=== PATIENT | female | born 1935 | race Caucasian/White ===

== ENCOUNTER → 2018-01-19 | Outpatient (CLI) | payer MEDICARE, BC ==
--- NOTE | 2018-01-20 09:31 | RADIOLOGY REPORT (SQ) ---
EXAM DESCRIPTION: CT CHEST WITH COMPLETED DATE/TIME: 01/19/2018 1:45 pm REASON FOR STUDY: LUNG NODULES (R91.8) R91.8 OTHER NONSPECIFIC ABNORMAL FINDING OF LUNG FIELD COMPARISON: Outside report 12/30/2017 CT coronary scoring, [facility] Diagnostic Imaging TECHNIQUE: CT scan of the chest performed using helical scanning technique with dynamic intravenous contrast injection. Images reviewed with lung, soft tissue and bone windows. Reconstructed coronal and sagittal MPR images reviewed. All images stored on PACS. All CT scanners at this facility use dose modulation, iterative reconstruction, and/or weight based d osing when appropriate to reduce radiation dose to as low as reasonably achievable (ALARA). [facility]: Dose Right [facility]: CareDose [facility]: Dose Right [facility]: Teradose 4D [facility]: [employer] CONTRAST TYPE AND DOSE: contrast/concentration: Isovue 370.00 mg/ml; Total Contrast Delivered: 80.0 ml; Total Saline Delivered: 55.0 ml RENAL FUNCTION: Creatinine 0.8 RADIATION DOSE: CT Rad equipment meets quality standard of care and radiation dose reduction techniq ues were employed. CTDIvol: 3.7 mGy. DLP: 142 mGy-cm. . LIMITATIONS: None. FINDINGS: LUNGS AND PLEURA: There is minimal patchy ground-glass opacity throughout both lungs. Bronchiectasis is present in the medial segment right middle lobe and lingular apex. There are too numerous to count pulmonary nodules scattered throughout the lung parenchyma, less than 1 cm in size. No pleural effusions. No pneumothorax. HILAR AND MEDIASTINAL STRUCTURES: No identified masses or abnormal nodes. HEART AND VASCULAR STRUCTURES: Left ventricular hypertrophy without overall cardiomegaly. No pericar dial effusion. Spotty minimal coronary artery calcifications. Ascending aorta 3.8 cm in greatest di ameter without dissection. HARDWARE: None in the chest. UPPER ABDOMEN: No significant findings. Limited exam. THYROID AND OTHER SOFT TISSUES: No masses. No adenopathy. BONES: Osteopenic. No thoracic compression deformity OTHER: No other significant finding. IMPRESSION: Postinflammatory changes in the lungs with evidence of current alveolitis. Multiple nod ules are present with bronchiectasis. Findings could reflect sarcoidosis. Mycobacterium complex cou ld cause this appearance. Chronic hypersensitivity pneumonitis is possible. TECHNICAL DOCUMENTATION: JOB ID: [id number] Quality ID # [id number]: Final reports with documentation of one or more dose reduction techniques (e.g., Au tomated exposure control, adjustment of the mA and/or kV according to patient size, use of iterative reconstruction technique) 2010 [employer]- All Rights Reserved Reading location - IP/workstation name: [email or web address]
== END ==
LOC: RAD 12:59
PROVIDERS: ATTEND Internal Medicine Geriatric Medicine
DX: R91.8 Other nonspecific abnormal finding of lung field (principal)
CPT/HCPCS: 71260; 82565

== ENCOUNTER → 2018-02-11 | Outpatient (CLI) | payer MEDICARE, BC ==
[~2018-02-11] MED LIST: REGADENOSON INJ 0.4 MG/5 ML DISP.SYRIN IV ONE
--- NOTE | 2018-02-11 20:32 | DRAGON STRESS TEST REPORT ---
INTRAVENOUS LEXISCAN CARDIOLITE STRESS TEST USING SINGLE PHOTON EMMISION COMPUTERIZED TOMOGRAPHIC. DATE OF PROCEDURE: January, INDICATION : Chest pain and shortness of breath CARDIAC RISK FACTORS: Hypertension dyslipidemia RESTING EKG: Sinus rhythm without any baseline ST-T wave changes. STRESS EKG: No significant ST segment changes noted with LexiScan bolus REASON FOR TERMINATION: Protocol. PROCEDURE REPORT: Baseline heart rate 81 beats per minute with blood pressure of 120/63. Patient had no significant complaints. Patient was bolused with Lexiscan 0.4 mg intravenously followed by saline bolus. Heart rate at 2 minutes post bolus 93 with a blood pressure of 127/70. 3 minutes post bolus heart rate 94 with blood pressure of 114/58. No significant EKG changes were noted. Patient had no significant complaints during the procedure or postprocedure. CONCLUSIONS: Normal EKG and hemodynamic response to IV LexiScan. NUCLEAR DATA: At rest the patient was given 10.80 millicuries of technetium 99 sestamibi injected intravenously. As per protocol rest gated SPECT images were obtained. On day of stress test, the patient was given intravenous LexiScan at a dose of 0.4 mg in 5 mL intravenously, followed by flush with normal saline. Subsequently the stress dose of 2.5 millicuries of technetium 99 sestamibi was injected intravenously. As per protocol stress gated images were obtained. NUCLEAR INTERPRETATION: Both raw and processed data were used for interpretation. Visual, qualitative, computer-generated quantitative data was used. There was good myocardial uptake of technetium compound. Motion artifact and soft tissue attenuations were noted. Increased visceral uptake was noted. No definitive areas of transient perfusion defect noted, No definitive areas of fixed perfusion defect or scars noted. EKG gated imaging showed LV EF at 70%, rest and stress gated EF similar visually. T. I D. ratio was 1.06. Lung heart ratio noted to be within normal limits 0.25. No significant extracardiac and abnormal radiotracer activities were noted. RV free wall uptake was noted to be WNL. IMPRESSION: Also refer to comments under nuclear interpretation. Also test results needs to be interpreted in the context of pretest probability. 1. No definitive areas of transient perfusion defect noted. 2. There is no definitive scintigraphic evidence of myocardial infarction/scar. 3. EKG gated imaging shows left ventricular ejection fraction of approx. 70 %. 4. Clinical correlation requested as occasionally single vessel disease or balanced ischemia could be missed. In approximately 10% of the cases Lexiscan may not cause adequate vasodilatory stress. RECOMMENDATIONS: Aggressive risk factor modification and medical management. Further evaluation may be needed if continued symptoms or other high risk indicators are noted on clinical evaluation. Close cardiology follow-up is also recommended. Clinical correlation with echocardiogram derived ejection fraction. Inability to exercise by itself can lead to increased cardiovascular event risks. Consider cardiology consultation and or follow-up if clinically indicated. I am available for cardiology evaluation and consultation if requested by the college physics instructor, unless patient already has a dry house wheeler. JAIME
--- NOTE | 2018-02-11 21:18 | XCELERA REPORT ---
[address] [address] Transthoracic Echocardiogram Report Name: NARGIS GARCIA Age: 82 yrs Gender: Female : 1935 Patient Status: Outpatient Patient Location: [facility] Study Date: 02/11/2018 11:31 AM Reason For Study: DYSPNEA Ordering Physician: JOSE MONSON Performed By: Kelly Jones Interpretation Summary Technically poor study, no Ht/Wt/BSA. No A2C view to assess biplane LVEF although based on PLAX and A4 chamber view, LVEF is hyperdynamic due to mild concentric LVH with LVEF >75% visually. Incomplete regional wall motion analysis, inferior and anterior wall not seen, there is stage I LVDD. Calcified aortic root and calcified RCCusp with no and no AR. Mod MAC with no MS and no MR, and no LA enlargement. RH poorly seen suspect RH enlargement, but tech didnot get enough clarity of image to measure internal measurement nor wa TR interrogated to help r/o pulm hypertension. MMode/2D Measurements & Calculations RVDd: 2.0 cm LVIDd: 3.2 cm FS: 48.6 % LA dimension: 2.4 cm IVSd: 1.1 cm LVIDs: 1.7 cm EDV(Teich): 41.8 ml LVPWd: 1.1 cm ESV(Teich): 7.9 ml EF(Teich): 81.2 % LVOT diam: 2.1 cm LVOT area: 3.6 cm2 Doppler Measurements & Calculations MV E max alexandra: MV P1/2t max alexandra: Ao V2 max: LV V1 max P.3 cm/sec 87.6 cm/sec 122.2 cm/sec 5.5 mmHg MV A max alexandra: MV P1/2t: 50.7 msec Ao max PG: LV V1 max: 99.2 cm/sec 6.0 mmHg 117.5 cm/sec MV E/A: 0.77 MVA(P1/2t): 4.3 cm2 MV dec slope: KALA(V,D): 3.5 cm2 505.7 cm/sec2 MV dec time: 0.21 sec PA V2 max: 74.1 cm/sec PA max P.3 mmHg Left Ventricle The left ventricular cavity is small. There is mild concentric left ventricular hypertrophy. The left ventricle is hyperdynamic. Doppler measurements suggest impaired left ventricular relaxation, which is associated with grade I/IV or mild diastolic dysfunction. Not all wall segments were well visualized. apical 2 chamber view not obtained. There is no thrombus. Right Ventricle The right ventricle is mildly dilated. The right ventricular systolic function is normal. Atria The right atrium is dilated. The left atrial size is normal. Mitral Valve There is moderate mitral annular calcification. There is no evidence of mitral valve prolapse. There is no mitral valve stenosis. There is no mitral regurgitation noted. Aortic Valve The aortic valve is calcified. The aortic valve opens well. The aortic valve is not well visualized secondary to technical limitations. Cannot exclude aortic valvular vegetation. There is no aortic valve stenosis. No aortic regurgitation is present. Tricuspid Valve The tricuspid valve is not well visualized secondary to technical limitations. No tricuspid regurgitation. Pulmonic Valve The pulmonic valve is not well visualized. There is no pulmonic valvular regurgitation. Great Vessels The aortic root is normal size. There is aortic root sclerosis/calcification. Effusions Minimal pericardial effusion. : JSOE MONSON > Jose Carlos Coronel
== END ==
LOC: RAD 08:41
PROVIDERS: ATTEND Internal Medicine Cardiovascular Disease
DX: R06.00 Dyspnea, unspecified (principal)
CPT/HCPCS: 93306; 93017; 78452; A9500; J2785; Q9969